=== PATIENT | female | born 1980 | race American Indian/Alaskan Native ===

== ENCOUNTER 2020-12-16 18:58 | Inpatient (IN) | payer MEDICARE ==
--- NOTE | 2020-12-16 19:44 | Event Note ---
ED Screening Note Date of service: 12/16/20 Time: 19:42 ED Screening Note: pt is a call back by pcp for low H/H ? , complains of SOB, N/V x 3 days , with syncope, referred by Dr. Junie Nava , pt denies CP, no fever or chills This initial assessment/diagnostic orders/clinical plan/treatment(s) is/are subject to change based on patients health status, clinical progression and re- assessment by fellow clinical providers in the ED. Further treatment and workup at subsequent clinical providers discretion. Patient/guardian urged not to elope from the ED as their condition may be serious if not clinically assessed and managed. Initial orders include: CMP, CBC , PT, PTT, CXR, EKG, UA, HCG IV
[2020-12-16 20:13] LABS: Basophils % (Auto) 0.7 % (0.0-1.8); Eosinophils % (Auto) 0.4 % (0.0-4.3); Lymphocytes # (Auto) 1.4 K/mm3 (1.2-5.4); Lymphocytes % (Auto) 21.3 % (13.4-35.0); Mean Corpuscular HGB Conc 30 % (30-34); Monocytes # (Auto) 0.9 K/mm3 (0.0-0.8); Monocytes % (Auto) 13.2 % (0.0-7.3); Platelet Count 680 K/mm3 (140-440); Red Blood Count 2.75 M/mm3 (3.65-5.03); Red Cell Distribution Width 17.8 % (13.2-15.2)
[2020-12-16] MEDS ORDERED: LACTATED RINGERS 1,000 ML IV ONE (20:20)
[2020-12-16] MEDS ORDERED: ONDANSETRON 4 MG ODT TAB PO PRN (20:20)
--- NOTE | 2020-12-16 20:21 | Emergency Department Report ---
ED General Adult HPI - General Chief complaint: Recheck/Abnormal Lab/Rx Stated complaint: PASSED OUT Time Seen by Provider: 12/16/20 20:07 Source: patient, family, RN notes reviewed Mode of arrival: Ambulatory Limitations: Other (Patient developmentally delayed) - History of Present Illness Initial comments: The patient was evaluated in the emergency department for symptoms described in the history of present illness. He/she was evaluated in the context of the global COVID-19 pandemic, which necessitated consideration that the patient might be at risk for infection with the virus that causes COVID-19. Institutional protocols and algorithms that pertain to the evaluation of patients at risk for COVID-19 are in a state of rapid change based on i nformation released by regulatory bodies including the CDC and federal and state organizations. These policies and algorithms were followed during the patient's care in the emergency department. Please note that these policies, procedures and recommendations changed on a rapid basis. During the history and physical examination, I am chaperoned by nurse Jony Bill Patient is a 40-year-old female. She is not known to myself previously. She has a history of autism and developmental delay. She is accompanied by her sister, who is her primary hogshead cooper, who provides all the history. Sister/hogshead cooper indicates the patient is not Patient was reportedly in her usual state of health a couple days ago, at the [facility], when she "passed out." As per her sister, the patient was walking, and appeared to become globally weak, and appeared to fall. Prior to this, the patient did not have any symptoms. The patient did not hit her head. The patient was evaluated by emergency medical services at the [facility], and the sister was told "that she is fine", and therefore, the patient herself did not have an evaluation by a physician, physician Human Resources Supervisor, or nurse practitioner. The patient followed up with her primary care doctor this week, had laboratory studies drawn, which showed a hemoglobin of 4.1. She was thus referred to the emergency room. Patient currently taking Risperdal, Zofran, Bentyl, metoprolol, and promethazine. However, the patient has not started any new or different medications. As per the patient's sister, no travel, surgery, oral contraceptive use, leg swelling which is new or different. No hematemesis of bright red blood per rectum. The patient also reportedly has heavy menstruation. Patient is not menstruating at this moment. The patient herself denies physical pain. As per the sister, there is no loss of taste or smell. Patient has a chronic history of vomiting while eating, patient sister reports that the patient rather rapidly, and therefore, has occasional nausea and vomiting while eating. This has been going on for months, is typically associated with eating, and patient is going to see an outpatient legal billing analyst, within the next few weeks, and its "[facility] gastroenterology." No further episodes of syncope/loss of consciousness. -: Sudden Consistency: now resolved Improves with: none Worsens with: none Associated Symptoms: denies other symptoms (As per sister/history of present i llness) - Related Data Home Medications Medication Instructions Recorded Confirmed Last Taken Pantoprazole Sodium 40 mg PO DAILY 12/16/20 12/16/20 Unknown risperiDONE [RisperDAL] 1 mg PO QHS 12/16/20 12/16/20 12/15/20 22:00 Allergies Allergy/AdvReac Type Severity Reaction Status Date / Time No Known Allergies Allergy Verified 12/16/20 19:45 ED Review of Systems ROS: Stated complaint: PASSED OUT Other details as noted in HPI Constitutional: denies: fever Eyes: denies: eye discharge ENT: denies: epistaxis, congestion Respiratory: denies: cough Cardiovascular: edema (Chronic lower extremity edema), syncope. denies: chest pain Gastrointestinal: nausea, vomiting. denies: hematemesis, melena, hematochezia Genitourinary: denies: frequency Neurological: denies: weakness Hematological/Lymphatic: other (Heavy menstruation). denies: easy bleeding ED Past Medical Hx - Past Medical History Previous Medical History?: Yes Hx Asthma: Yes Additional medical history: Autisic - Surgical History Past Surgical History?: No - Social History Smoking Status: Never Smoker Substance Use Type: None - Medications Home Medications: Home Medications Medication Instructions Recorded Confirmed Last Taken Type Pantoprazole Sodium 40 mg PO DAILY 12/16/20 12/16/20 Unknown History risperiDONE [RisperDAL] 1 mg PO QHS 12/16/20 12/16/20 12/15/20 22:00 History ED Physical Exam - General Limitations: Other (Developmental delay) General appearance: in no apparent distress, obese, other (During the entire physical examination, chaperoned by nurse jony bill) - Head Head exam: Present: atraumatic, normocephalic - Eye Eye exam: Present: normal appearance, EOMI, other (Conjunctiva are pale). Absent: nystagmus - ENT ENT exam: Present: normal exam, normal orophraynx, mucous membranes moist, normal external ear exam - Neck Neck exam: Present: normal inspection, full ROM. Absent: tenderness, meningismus - Respiratory Respiratory exam: Present: normal lung sounds bilaterally. Absent: respiratory distress, wheezes, rales, rhonchi, stridor, decreased breath sounds - Cardiovascular Cardiovascular Exam: Present: regular rate, normal rhythm, normal heart sounds. Absent: bradycardia, tachycardia, irregular rhythm, systolic murmur, diastolic murmur, rubs, gallop - GI/Abdominal GI/Abdominal exam: Present: soft. Absent: distended, tenderness, guarding, rebound, rigid, pulsatile mass - Rectal Rectal exam: Present: normal inspection, normal rectal tone, heme (-) stool, other (Chaperoned by nurse jony bill). Absent: heme (+) stool, black stool, bloody stool, fecal impaction, hemorrhoids, mass, tenderness - Extremities Exam Extremities exam: Present: normal inspection, full ROM, pedal edema (2+ edema in the bilateral lower extremities), other (2+ pulses noted in the bilateral upper and lower extremities. There is no palpable cord. negative Homans sign. Muscular compartments are soft. The pelvis is stable.). Absent: calf tenderness - Back Exam Back exam: Present: normal inspection, full ROM. Absent: tenderness, CVA tenderness (R), CVA tenderness (L), paraspinal tenderness, vertebral tenderness - Neurological Exam Neurological exam: Present: alert, normal gait, other (No facial droop. Tongue midline. Extraocular movements intact bilaterally. Facial sensation intact to light touch in V1, V2, V3 distribution bilaterally. 5 and a 5 strength in 4 e xtremities. Sensation intact to light touch in 4 extremities.) - Psychiatric Psychiatric exam: Present: flat affect - Skin Skin exam: Present: warm, dry, intact, normal color. Absent: rash ED Course Vital Signs 12/16/20 12/16/20 12/16/20 19:42 20:00 20:14 Temperature 99.5 F 98.8 F Pulse Rate 94 H 96 H Respiratory 20 14 17 Rate Blood Pressure 133/59 Blood Pressure 160/72 [Left] O2 Sat by Pulse 100 100 Oximetry 12/16/20 12/16/20 12/16/20 20:15 20:30 20:45 Temperature Pulse Rate 91 H 95 H 94 H Respiratory 13 16 17 Rate Blood Pressure 160/72 149/70 Blood Pressure [Left] O2 Sat by Pulse 100 100 100 Oximetry 12/16/20 21:00 Temperature Pulse Rate 102 H Respiratory 14 Rate Blood Pressure 149/70 Blood Pressure [Left] O2 Sat by Pulse 100 Oximetry ED Medical Decision Making - Lab Data Result diagrams: 12/16/20 19:48 12/16/20 19:48 Vital Signs 12/16/20 12/16/20 12/16/20 19:42 20:00 20:14 Temperature 99.5 F 98.8 F Pulse Rate 94 H 96 H Respiratory 20 14 17 Rate Blood Pressure 133/59 Blood Pressure 160/72 [Left] O2 Sat by Pulse 100 100 Oximetry 12/16/20 12/16/20 12/16/20 20:15 20:30 20:45 Temperature Pulse Rate 91 H 95 H 94 H Respiratory 13 16 17 Rate Blood Pressure 160/72 149/70 Blood Pressure [Left] O2 Sat by Pulse 100 100 100 Oximetry 12/16/20 21:00 Temperature Pulse Rate 102 H Respiratory 14 Rate Blood Pressure 149/70 Blood Pressure [Left] O2 Sat by Pulse 100 Oximetry Lab Results 12/16/20 12/16/20 12/16/20 Range/Units 19:48 19:48 19:48 WBC 6.6 (4.5-11.0) K/mm3 RBC 2.75 L (3.65-5.03) M/mm3 Hgb 5.3 L* (10.1-14.3) gm/dl Hct 17.6 L* (30.3-42.9) % MCV 64 L (79-97) fl MCH 19 L (28-32) pg MCHC 30 (30-34) % RDW 17.8 H (13.2-15.2) % Plt Count 680 H (140-440) K/mm3 Lymph % (Auto) 21.3 (13.4-35.0) % [place] % (Auto) 13.2 H (0.0-7.3) % Eos % (Auto) 0.4 (0.0-4.3) % Baso % (Auto) 0.7 (0.0-1.8) % Lymph # (Auto) 1.4 (1.2-5.4) K/mm3 [place] # (Auto) 0.9 H (0.0-0.8) K/mm3 Eos # (Auto) 0.0 (0.0-0.4) K/mm3 Baso # (Auto) 0.0 (0.0-0.1) K/mm3 Seg Neutrophils % 64.4 (40.0-70.0) % Seg Neutrophils # 4.2 (1.8-7.7) K/mm3 PT 12.3 (12.2-14.9) Sec. INR 0.92 (0.87-1.13) APTT 30.2 (24.2-36.6) Sec. Sodium 136 L (137-145) mmol/L Potassium 4.3 (3.6-5.0) mmol/L Chloride 101.4 (98-107) mmol/L Carbon Dioxide 26 (22-30) mmol/L Anion Gap 13 mmol/L BUN 7 (7-17) mg/dL Creatinine 0.7 (0.6-1.2) mg/dL Estimated GFR > 60 ml/min BUN/Creatinine Ratio 10 % Glucose 110 H (65-100) mg/dL Calcium 8.5 (8.4-10.2) mg/dL Magnesium (1.7-2.3) mg/dL Total Bilirubin 0.30 (0.1-1.2) mg/dL AST 11 (5-40) units/L ALT 5 L (7-56) units/L Alkaline Phosphatase 51 (35-129) units/L Total Creatine Kinase (30-135) units/L Total Protein 6.8 (6.3-8.2) g/dL Albumin 4.0 (3.9-5) g/dL Albumin/Globulin Ratio 1.4 % TSH (0.270-4.200) mlU/mL Blood Type Antibody Screen Crossmatch 12/16/20 12/16/20 12/16/20 Range/Units 20:12 20:12 20:12 WBC (4.5-11.0) K/mm3 RBC (3.65-5.03) M/mm3 Hgb (10.1-14.3) gm/dl Hct (30.3-42.9) % MCV (79-97) fl MCH (28-32) pg MCHC (30-34) % RDW (13.2-15.2) % Plt Count (140-440) K/mm3 Lymph % (Auto) (13.4-35.0) % [place] % (Auto) (0.0-7.3) % Eos % (Auto) (0.0-4.3) % Baso % (Auto) (0.0-1.8) % Lymph # (Auto) (1.2-5.4) K/mm3 [place] # (Auto) (0.0-0.8) K/mm3 Eos # (Auto) (0.0-0.4) K/mm3 Baso # (Auto) (0.0-0.1) K/mm3 Seg Neutrophils % (40.0-70.0) % Seg Neutrophils # (1.8-7.7) K/mm3 PT (12.2-14.9) Sec. INR (0.87-1.13) APTT (24.2-36.6) Sec. Sodium (137-145) mmol/L Potassium (3.6-5.0) mmol/L Chloride (98-107) mmol/L Carbon Dioxide (22-30) mmol/L Anion Gap mmol/L BUN (7-17) mg/dL Creatinine (0.6-1.2) mg/dL Estimated GFR ml/min BUN/Creatinine Ratio % Glucose (65-100) mg/dL Calcium (8.4-10.2) mg/dL Magnesium 2.00 (1.7-2.3) mg/dL Total Bilirubin (0.1-1.2) mg/dL AST (5-40) units/L ALT (7-56) units/L Alkaline Phosphatase (35-129) units/L Total Creatine Kinase 75 (30-135) units/L Total Protein (6.3-8.2) g/dL Albumin (3.9-5) g/dL Albumin/Globulin Ratio % TSH 1.960 (0.270-4.200) mlU/mL Blood Type O POSITIVE Antibody Screen Negative Crossmatch See Detail - EKG Data -: EKG Interpreted by Nm EKG shows normal: sinus rhythm Rate: normal - EKG Data When compared to previous EKG there are: previous EKG unavailable 12/16/20 21:24 Sinus rhythm, 97 bpm. Normal axis, motion artifact, QTC is prolonged, motion artifact V5. Abnormal EKG. Not a STEMI. There is no prior for comparison. - Radiology Data Radiology results: pending - Medical Decision Making Differential diagnosis, including but not limited to: Orthostasis, vagal event, structural cardiac disease, thyroid derangement, electrolyte derangement, sympt omatic anemia Assessment and plan: 40-year-old female, guaiac negative on rectal examination, very pale, with pale conjunctiva, anemic, with thrombocytosis, , microcytosis, with episode of syncope, 3 days ago. Patient is not currently tachycardic, tachypneic or hypoxic, as per her sister, there are no DVT or pulmonary embolism risk factors, and the patient is low risk by Wells criteria. There may be a component of symptomatic anemia versus myelodysplastic syndrome. Would defer to inpatient team to further work-up microcytic anemia and thrombocytosis. Physical exam otherwise unremarkable except as noted, mild lower extremity edema, walking with a steady gait. Patient found to be markedly anemic, sister has consented for packed red blood cell transfusion. We have recommended admission to the medical service for supportive care, packed red blood cell transfusion. Sister is amenable to this plan of care. Hospital physician, Dr. Parkinson to admit Suspect there may be a component of chronic aerophagia. This is most likely behavioral. Does not represent emergent condition, this can be followed up by an outpatient primary care doctor, or legal billing analyst. Critical Care Time: Yes Critical care time in (mins) excluding proc time.: 35 Critical care attestation.: If time is entered above; I have spent that time in minutes in the direct care of this critically ill patient, excluding procedure time. ED Disposition Clinical Impression: Syncope, Anemia, Autism, History of vomiting Disposition: OP ADMIT IP TO THIS HOSP Is pt being admited?: Yes Does the pt Need Aspirin: No Condition: Good
[2020-12-16 20:26] LABS: INR 0.92 (0.87-1.13)
[2020-12-16 20:27] LABS: Partial Thromboplastin Time 30.2 Sec. (24.2-36.6)
[2020-12-16 20:37] LABS: Alanine Aminotransferase 5 units/L (7-56); Blood Urea Nitrogen 7 mg/dL (7-17); Calcium 8.5 mg/dL (8.4-10.2); Hemolysis Index 0
[2020-12-16 20:45] LABS: BUN/Creatinine Ratio 10
[2020-12-16 20:56] LABS: Mean Corpuscular Volume 64 fl (79-97)
[2020-12-16 20:59] LABS: Hematocrit 17.6 % (30.3-42.9); Hemoglobin 5.3 gm/dl (10.1-14.3)
[2020-12-16] MEDS ORDERED: SODIUM CHLORIDE 0.9% 500 ML 500 ML IV ONE (21:15)
[2020-12-16] MEDS ORDERED: ONDANSETRON 4 MG/2 ML INJ IV PRN (21:39)
[2020-12-16 22:23] LABS: Bilirubin,Urine NEG (Negative); Blood,Urine NEG (Negative); Color,Urine Straw (Yellow); Mucus,Urine FEW /HPF; Protein,Urine <15 mg/dL mg/dL (Negative); Urobilinogen,Urine < 2.0 mg/dL (<2.0)
[2020-12-16 22:25] LABS: HCG Qualitative,Urine Negative (Negative); RBC,Urine < 1.0 /HPF (0.0-6.0); WBC,Urine < 1.0 /HPF (0.0-6.0)
[2020-12-16] MEDS: risperiDONE 1 MG TAB PO SCH (23:02)
--- NOTE | 2020-12-16 23:05 | History and Physical Report ---
History of Present Illness Date of examination: 12/16/20 Date of admission: 12/16/20 21:26 Chief complaint: abnormal labs. syncope History of present illness: 40-year-old autistic female with history of chronic nausea/vomiting when eating, menorrhagia, and iron deficiency anemia who presents to [facility] ED with complaints of anemia. Of note patient sister, who is also her primary technical assoc is present and has assisted with providing history. Patient sister reports they were out grocery shopping on Tuesday (12/12) and patient had a syncopal episode. Patient was evaluated by emergency medical services (who were on scene), with no acute findings. On Tuesday patient went to her PCP for follow-up, and routine labs were drawn which showed hemoglobin of 4.1. Patient was referred to report to ED for further evaluation and treatment. At the time of my examination patient is sitting up in stretcher, alert and oriented x2-3, and has no complaints at this time. Denies headache, dizziness, alterations in vision, alterations in gait, abdominal pain, fever, hematuria, melena, hematemesis, hemoptysis, change in medication, or recent sick contacts Past History Past Medical History: other (Autism, chronic nausea/vomiting while eating, menorrhagia, anemia) Past Surgical History: Other (Denies surgical history) Social history: single, full code, other (Lives with sister who is also her primary technical assoc). denies: alcohol abuse, prescription drug abuse, IV drug use Family history: other (Mother: Anemia, fibroids, COPD, chronic respiratory failure status post trach) Medications and Allergies Allergies Allergy/AdvReac Type Severity Reaction Status Date / Time No Known Allergies Allergy Verified 12/16/20 19:45 Home Medications Medication Instructions Recorded Confirmed Last Taken Type Pantoprazole Sodium 40 mg PO DAILY 12/16/20 12/16/20 Unknown History risperiDONE [RisperDAL] 1 mg PO QHS 12/16/20 12/16/20 12/15/20 22:00 History Active Meds: Active Medications Acetaminophen (Acetaminophen 325 Mg Tab) 650 mg PO Q4H PRN PRN Reason: Pain MILD(1-3)/Fever >100.5/JHONSON Ferrous Sulfate (Ferrous Sulfate 325 Mg Tab) 325 mg PO QDAY CARMEN Ondansetron HCl (Ondansetron 4 Mg Odt Tab) 4 mg PO Q6HR PRN PRN Reason: Nausea Ondansetron HCl (Ondansetron 4 Mg/2 Ml Inj) 4 mg IV Q6H PRN PRN Reason: Nausea And Vomiting Pantoprazole Sodium (Pantoprazole 40 Mg Tab) 40 mg PO DAILY CARMEN Sodium Chloride (Sodium Chloride 0.9% 10 Ml Flush Syringe) 10 ml IV BID CARMEN Sodium Chloride (Sodium Chloride 0.9% 10 Ml Flush Syringe) 10 ml IV PRN PRN PRN Reason: LINE FLUSH Review of Systems All systems: negative (As noted in HPI) Exam - Physical Exam Narrative exam: Physical exam General appearance: Present: No acute distress, alert and oriented 2-3, adult female - EENT Eyes: Present: PERRL, EOM intact ENT: hearing intact, normal dentition - Neck Neck: Present: supple, normal ROM - Respiratory Respiratory effort: Non-labored Respiratory: Clear throughout - Cardiovascular Heart rate: 85 (bpm) Rhythm: Sinus Heart Sounds: Present: S1 & S2. Absent: rub, click - Extremities Extremities: no ischemia, pulses intact, bilateral lower extremity edema - Peripheral Assessment Peripheral Pulses: within normal limits - Abdominal General gastrointestinal: soft, non-tender, normal bowel sounds - Integumentary Integumentary: Present: warm, dry - Musculoskeletal Musculoskeletal: Able to move all extremities -Neurological Neurological: CN II-XII intact - Psychiatric Psychiatric: cooperative - Constitutional Vitals: Temp Pulse Resp BP Pulse Ox 98.8 F 95 H 16 147/56 100 12/16/20 20:00 12/16/20 22:00 12/16/20 22:00 12/16/20 22:00 12/16/20 22:00 Results - Labs CBC & Chem 7: 12/16/20 19:48 12/16/20 19:48 Labs: Laboratory Last Values WBC 6.6 K/mm3 (4.5-11.0) 12/16/20 19:48 RBC 2.75 M/mm3 (3.65-5.03) L 12/16/20 19:48 Hgb 5.3 gm/dl (10.1-14.3) L* 12/16/20 19:48 Hct 17.6 % (30.3-42.9) L* 12/16/20 19:48 MCV 64 fl (79-97) L 12/16/20 19:48 MCH 19 pg (28-32) L 12/16/20 19:48 MCHC 30 % (30-34) 12/16/20 19:48 RDW 17.8 % (13.2-15.2) H 12/16/20 19:48 Plt Count 680 K/mm3 (140-440) H 12/16/20 19:48 Lymph % (Auto) 21.3 % (13.4-35.0) 12/16/20 19:48 [place] % (Auto) 13.2 % (0.0-7.3) H 12/16/20 19:48 Eos % (Auto) 0.4 % (0.0-4.3) 12/16/20 19:48 Baso % (Auto) 0.7 % (0.0-1.8) 12/16/20 19:48 Lymph # (Auto) 1.4 K/mm3 (1.2-5.4) 12/16/20 19:48 [place] # (Auto) 0.9 K/mm3 (0.0-0.8) H 12/16/20 19:48 Eos # (Auto) 0.0 K/mm3 (0.0-0.4) 12/16/20 19:48 Baso # (Auto) 0.0 K/mm3 (0.0-0.1) 12/16/20 19:48 Seg Neutrophils % 64.4 % (40.0-70.0) 12/16/20 19:48 Seg Neutrophils # 4.2 K/mm3 (1.8-7.7) 12/16/20 19:48 PT 12.3 Sec. (12.2-14.9) 12/16/20 19:48 INR 0.92 (0.87-1.13) 12/16/20 19:48 APTT 30.2 Sec. (24.2-36.6) 12/16/20 19:48 Sodium 136 mmol/L (137-145) L 12/16/20 19:48 Potassium 4.3 mmol/L (3.6-5.0) 12/16/20 19:48 Chloride 101.4 mmol/L (98-107) 12/16/20 19:48 Carbon Dioxide 26 mmol/L (22-30) 12/16/20 19:48 Anion Gap 13 mmol/L 12/16/20 19:48 BUN 7 mg/dL (7-17) 12/16/20 19:48 Creatinine 0.7 mg/dL (0.6-1.2) 12/16/20 19:48 Estimated GFR > 60 ml/min 12/16/20 19:48 BUN/Creatinine Ratio 10 % 12/16/20 19:48 Glucose 110 mg/dL (65-100) H 12/16/20 19:48 Calcium 8.5 mg/dL (8.4-10.2) 12/16/20 19:48 Magnesium 2.00 mg/dL (1.7-2.3) 12/16/20 20:12 Total Bilirubin 0.30 mg/dL (0.1-1.2) 12/16/20 19:48 AST 11 units/L (5-40) 12/16/20 19:48 ALT 5 units/L (7-56) L 12/16/20 19:48 Alkaline Phosphatase 51 units/L (35-129) 12/16/20 19:48 Total Creatine Kinase 75 units/L (30-135) 12/16/20 20:12 Total Protein 6.8 g/dL (6.3-8.2) 12/16/20 19:48 Albumin 4.0 g/dL (3.9-5) 12/16/20 19:48 Albumin/Globulin Ratio 1.4 % 12/16/20 19:48 TSH 1.960 mlU/mL (0.270-4.200) 12/16/20 20:12 Urine Color Straw (Yellow) 12/16/20 21:27 Urine Turbidity Clear (Clear) 12/16/20 21:27 Urine pH 7.0 (5.0-7.0) 12/16/20 21:27 Ur Specific [place] 1.008 (1.003-1.030) 12/16/20 21:27 Urine Protein <15 mg/dl mg/dL (Negative) 12/16/20 21:27 Urine Glucose (UA) Neg mg/dL (Negative) 12/16/20 21:27 Urine Ketones Neg mg/dL (Negative) 12/16/20 21:27 Urine Blood Neg (Negative) 12/16/20 21:27 Urine Nitrite Neg (Negative) 12/16/20 21:27 Urine Bilirubin Neg (Negative) 12/16/20 21: Urine Urobilinogen < 2.0 mg/dL (<2.0) 12/16/20 21: Ur Leukocyte Esterase Neg (Negative) 12/16/20 21: Urine WBC (Auto) < 1.0 /HPF (0.0-6.0) 12/16/20 21: Urine RBC (Auto) < 1.0 /HPF (0.0-6.0) 12/16/20: U Epithel Cells (Auto) 1.0 /HPF (0-13.0) 12/16/20: Urine Mucus Few /HPF 12/16/20 21: Urine HCG, Qual Negative (Negative) 12/16/20 21: Blood Type O POSITIVE 12/16/20 20:12 Antibody Screen Negative 12/16/20 20:12 Crossmatch See Detail 12/16/20 20:12 Assessment and Plan Assessment and plan: Anemia -Microcytic -Symptomatic -History of iron deficiency anemia, previously on oral iron replacement -History of menorrhagia, last menstrual cycle ending of November -Hemoglobin on admission 5.3 -No S/S of active bleeding -PRBC ordered in the ED, transfusion pending -Start oral iron supplement -Continue to monitor hemoglobin -Transfuse as needed -Hematology consult pending Thrombocytosis -?? Reactive process -Serum ferritin pending -Hematology consult pending History of chronic nausea/vomiting -When eating -IV Zofran as needed -On Protonix, continue -Has schedule appointment with [facility] Syncope -Witnessed syncopal episode x1 (12/12) -Denies head injury/trauma -Neurochecks -Echo and Doppler pending -Initiate fall precautions Autism -Continue risperidone DVT PPX -On anticoagulation for now Advance Directives: No VTE prophylaxis?: Mechanical Reason for no VTE Prophylaxis: Medical contraindication Plan of care discussed with patient/family: Yes
--- NOTE | 2020-12-16 23:14 | XRay Report ---
CHEST 1 VIEW 12/16/2020 10:03 PM INDICATION / CLINICAL INFORMATION: s/v weak syncope. COMPARISON: None available. FINDINGS: SUPPORT DEVICES: None. HEART / MEDIASTINUM: Heart is upper normal size for AP portable technique. LUNGS / PLEURA: Mild perihilar interstitial opacities could represent early edema. No acute airspace disease. No pneumothorax. ADDITIONAL FINDINGS: No significant additional findings. IMPRESSION: 1. Borderline cardiomegaly with borderline interstitial pulmonary edema. Signer Name: Nila Ray MD Signed: 12/16/2020 11:10 PM Workstation Name: [id number]
[2020-12-17] MEDS: ACETAMINOPHEN 325 MG TAB PO PRN ×2 (01:25→20:31)
[2020-12-17] MEDS ORDERED: SODIUM CHLORIDE 0.9% 500 ML 500 ML IV ONE (01:30)
--- NOTE | 2020-12-17 01:39 | Hem/Onc Consultation ---
History of Present Illness - History of Present Illness heme data review 40yo disabled woman with mental illness, chronic anemia, eval for syncope went to [facility]-->found to have severe anemia Hgb 4.1 now receiving RBC transfusions no overt bleeding now DATA REVIEWED BELOW IMPRESSION Severe anemia mostly due to chronic bleeding and iron defic high plt count could be due to iron defic iron tetsing won't be interpretable after RBC transfusion PLAN/REC: RBC transfusion planned IV iron infusions eventually [facility] [employer] eval Vital Signs Temp Pulse Resp BP Pulse Ox 95.6 F L 98 H 18 135/55 100 12/16/20 23:36 12/16/20 23:36 12/16/20 23:36 12/16/20 23:36 12/16/20 23:36 Temperature -Last 24 Hours Temperature 95.6 F Temperature 98.8 F Temperature 99.5 F Home Medications Medication Instructions Recorded Confirmed Last Taken Pantoprazole Sodium 40 mg PO DAILY 12/16/20 12/16/20 Unknown risperiDONE [RisperDAL] 1 mg PO QHS 12/16/20 12/16/20 12/15/20 22:00 Laboratory Last Values WBC 6.6 K/mm3 (4.5-11.0) 12/16/20 19:48 Hgb 5.3 gm/dl (10.1-14.3) L* 12/16/20 19:48 Hct 17.6 % (30.3-42.9) L* 12/16/20 19:48 MCV 64 fl (79-97) L 12/16/20 19:48 Plt Count 680 K/mm3 (140-440) H 12/16/20 19:48 Creatinine 0.7 mg/dL (0.6-1.2) 12/16/20 19:48 Crossmatch See Detail 12/16/20 20:12 Past History Past Medical History: other (Autism, chronic nausea/vomiting while eating, menorrhagia, anemia) Past Surgical History: Other (Denies surgical history) Social history: single, full code, other (Lives with sister who is also her primary pantograph watcher). denies: alcohol abuse, prescription drug abuse, IV drug use Family history: other (Mother: Anemia, fibroids, COPD, chronic respiratory failure status post trach) Medications and Allergies Allergies Allergy/AdvReac Type Severity Reaction Status Date / Time No Known Allergies Allergy Verified 12/16/20 19:45 Home Medications Medication Instructions Recorded Confirmed Last Taken Type Pantoprazole Sodium 40 mg PO DAILY 12/16/20 12/16/20 Unknown History risperiDONE [RisperDAL] 1 mg PO QHS 12/16/20 12/16/20 12/15/20 22:00 History Active Meds: Active Medications Acetaminophen (Acetaminophen 325 Mg Tab) 650 mg PO Q4H PRN PRN Reason: Pain MILD(1-3)/Fever >100.5/JOHNSON Last Admin: 12/17/20 01:25 Dose: 650 mg Documented by: Ferrous Sulfate (Ferrous Sulfate 325 Mg Tab) 325 mg PO QDAY [facility] Ondansetron HCl (Ondansetron 4 Mg Odt Tab) 4 mg PO Q6HR PRN PRN Reason: Nausea Ondansetron HCl (Ondansetron 4 Mg/2 Ml Inj) 4 mg IV Q6H PRN PRN Reason: Nausea And Vomiting Pantoprazole Sodium (Pantoprazole 40 Mg Tab) 40 mg PO DAILY [facility] Risperidone (Risperidone 1 Mg Tab) 1 mg PO QHS [facility] Last Admin: 12/16/20 23:02 Dose: 1 mg Documented by: Sodium Chloride (Sodium Chloride 0.9% 10 Ml Flush Syringe) 10 ml IV BID [facility] Last Admin: 12/16/20 23:03 Dose: 10 ml Documented by: Sodium Chloride (Sodium Chloride 0.9% 10 Ml Flush Syringe) 10 ml IV PRN PRN PRN Reason: LINE FLUSH Exam - Constitutional Vitals: Last Vital Signs Temp 95.6 F L 12/16/20 23:36 Pulse 98 H 12/16/20 23:36 Resp 18 12/16/20 23:36 BP 135/55 12/16/20 23:36 Pulse Ox 100 12/16/20 23:36 Results - Labs lab Results: Laboratory Results - last 24 hr 12/16/20 12/16/20 12/16/20 19:48 19:48 19:48 WBC 6.6 RBC 2.75 L Hgb 5.3 L* Hct 17.6 L* MCV 64 L MCH 19 L MCHC 30 RDW 17.8 H Plt Count 680 H Lymph % (Auto) 21.3 [place] % (Auto) 13.2 H Eos % (Auto) 0.4 Baso % (Auto) 0.7 Lymph # (Auto) 1.4 [place] # (Auto) 0.9 H Eos # (Auto) 0.0 Baso # (Auto) 0.0 Seg Neutrophils % 64.4 Seg Neutrophils # 4.2 PT 12.3 INR 0.92 APTT 30.2 Sodium 136 L Potassium 4.3 Chloride 101.4 Carbon Dioxide 26 Anion Gap 13 BUN 7 Creatinine 0.7 Estimated GFR > 60 BUN/Creatinine Ratio 10 Glucose 110 H Calcium 8.5 Magnesium Total Bilirubin 0.30 AST 11 ALT 5 L Alkaline Phosphatase 51 Total Creatine Kinase Total Protein 6.8 Albumin 4.0 Albumin/Globulin Ratio 1.4 TSH Urine Color Urine Turbidity Urine pH Ur Specific [place] Urine Protein Urine Glucose (UA) Urine Ketones Urine Blood Urine Nitrite Urine Bilirubin Urine Urobilinogen Ur Leukocyte Esterase Urine WBC (Auto) Urine RBC (Auto) U Epithel Cells (Auto) Urine Mucus Urine HCG, Qual Blood Type Antibody Screen Crossmatch 12/16/20 12/16/20 12/16/20 20:12 20:12 20:12 WBC RBC Hgb Hct MCV MCH MCHC RDW Plt Count Lymph % (Auto) [place] % (Auto) Eos % (Auto) Baso % (Auto) Lymph # (Auto) [place] # (Auto) Eos # (Auto) Baso # (Auto) Seg Neutrophils % Seg Neutrophils # PT INR APTT Sodium Potassium Chloride Carbon Dioxide Anion Gap BUN Creatinine Estimated GFR BUN/Creatinine Ratio Glucose Calcium Magnesium 2.00 Total Bilirubin AST ALT Alkaline Phosphatase Total Creatine Kinase 75 Total Protein Albumin Albumin/Globulin Ratio TSH 1.960 Urine Color Urine Turbidity Urine pH Ur Specific [place] Urine Protein Urine Glucose (UA) Urine Ketones Urine Blood Urine Nitrite Urine Bilirubin Urine Urobilinogen Ur Leukocyte Esterase Urine WBC (Auto) Urine RBC (Auto) U Epithel Cells (Auto) Urine Mucus Urine HCG, Qual Blood Type O POSITIVE Antibody Screen Negative Crossmatch See Detail 12/16/20 21:27 WBC RBC Hgb Hct MCV MCH MCHC RDW Plt Count Lymph % (Auto) [place] % (Auto) Eos % (Auto) Baso % (Auto) Lymph # (Auto) [place] # (Auto) Eos # (Auto) Baso # (Auto) Seg Neutrophils % Seg Neutrophils # PT INR APTT Sodium Potassium Chloride Carbon Dioxide Anion Gap BUN Creatinine Estimated GFR BUN/Creatinine Ratio Glucose Calcium Magnesium Total Bilirubin AST ALT Alkaline Phosphatase Total Creatine Kinase Total Protein Albumin Albumin/Globulin Ratio TSH Urine Color Straw Urine Turbidity Clear Urine pH 7.0 Ur Specific [place] 1.008 Urine Protein <15 mg/dl Urine Glucose (UA) Neg Urine Ketones Neg Urine Blood Neg Urine Nitrite Neg Urine Bilirubin Neg Urine Urobilinogen < 2.0 Ur Leukocyte Esterase Neg Urine WBC (Auto) < 1.0 Urine RBC (Auto) < 1.0 U Epithel Cells (Auto) 1.0 Urine Mucus Few Urine HCG, Qual Negative Blood Type Antibody Screen Crossmatch
[2020-12-17 07:08] LABS: Basophils # (Auto) 0.1 K/mm3 (0.0-0.1); Eosinophils % (Auto) 0.7 % (0.0-4.3); Hemoglobin 6.2 gm/dl (10.1-14.3); Lymphocytes # (Auto) 1.7 K/mm3 (1.2-5.4); Lymphocytes % (Auto) 33.8 % (13.4-35.0); Monocytes # (Auto) 0.7 K/mm3 (0.0-0.8); Monocytes % (Auto) 13.6 % (0.0-7.3)
[2020-12-17 07:37] LABS: Albumin 3.2 g/dL (3.9-5); Blood Urea Nitrogen 5 mg/dL (7-17); Calcium 8.1 mg/dL (8.4-10.2); Hemolysis Index 0
[2020-12-17 07:38] LABS: Alanine Aminotransferase < 5 units/L (7-56); BUN/Creatinine Ratio 7
[2020-12-17 08:04] LABS: Hematocrit 20.3 % (30.3-42.9); Mean Corpuscular HGB Conc 31 % (30-34); Mean Corpuscular Volume 70 fl (79-97); Platelet Count 515 K/mm3 (140-440); Red Blood Count 2.89 M/mm3 (3.65-5.03)
[2020-12-17 08:05] LABS: Red Cell Distribution Width 22.7 % (13.2-15.2)
[2020-12-17] MEDS: FERROUS SULFATE 325 MG TAB PO SCH (09:58)
[2020-12-17] MEDS: PANTOPRAZOLE 40 MG TAB PO SCH (09:58)
--- NOTE | 2020-12-17 11:30 | Hem/Onc Consultation ---
History of Present Illness - History of Present Illness 40yo disabled woman with mental illness, chronic anemia, eval for syncope went to [facility]-->found to have severe anemia Hgb 4.1 ice craving says she once took hormone/OCP to contgrol bleeding, but not recently no overt bleeding now s/p RBC transfusion yesterday EXAM nad not bruised talks in a mumble, but answers questions appropriately DATA REVIEWED BELOW NL coags low ferriitin noted IMPRESSION Severe anemia mostly due to chronic bleeding and iron defic s/p RBC transfusion yesterday (this gave her iron) recent high plt count likely be due to iron defic PLAN/REC: IV iron infusions while hospitalized eventually [employer] E[employer] DESIGNER eval -->she may need to get back onto hormone med request pelvic u/s OK to plan discharge from heme perspective--pio try for televisit f/u Laboratory Last Values WBC 5.0 K/mm3 (4.5-11.0) 12/17/20 06:35 Hgb 6.2 gm/dl (10.1-14.3) L 12/17/20 06:35 Hct 20.3 % (30.3-42.9) L 12/17/20 06:35 MCV 70 fl (79-97) L 12/17/20 06:35 Plt Count 515 K/mm3 (140-440) H 12/17/20 06:35 Ferritin 3.4 ng/mL (10.0-200.0) L 12/17/20 06:35 Antibody Screen Negative 12/16/20 20:12 Crossmatch See Detail 12/16/20 20:12 Past History Past Medical History: other (Autism, chronic nausea/vomiting while eating, menorrhagia, anemia) Past Surgical History: Other (Denies surgical history) Social history: single, full code, other (Lives with sister who is also her primary laser technician). denies: alcohol abuse, prescription drug abuse, IV drug use Family history: other (Mother: Anemia, fibroids, COPD, chronic respiratory failure status post trach) Medications and Allergies Allergies Allergy/AdvReac Type Severity Reaction Status Date / Time No Known Allergies Allergy Verified 12/16/20 19:45 Home Medications Medication Instructions Recorded Confirmed Last Taken Type Pantoprazole Sodium 40 mg PO DAILY 12/16/20 12/16/20 Unknown History risperiDONE [RisperDAL] 1 mg PO QHS 12/16/20 12/16/20 12/15/20 22:00 History Active Meds: Active Medications Acetaminophen (Acetaminophen 325 Mg Tab) 650 mg PO Q4H PRN PRN Reason: Pain MILD(1-3)/Fever >100.5/JOHNSON Last Admin: 12/17/20 01:25 Dose: 650 mg Documented by: Ferrous Sulfate (Ferrous Sulfate 325 Mg Tab) 325 mg PO QDAY [facility] Last Admin: 12/17/20 09:58 Dose: 325 mg Documented by: Ferric Sodium Gluconate Complex 125 mg/ Sodium Chloride 110 mls @ 100 mls/hr IV ONCE ONE Stop: 12/17/20 12:31 Ondansetron HCl (Ondansetron 4 Mg Odt Tab) 4 mg PO Q6HR PRN PRN Reason: Nausea Ondansetron HCl (Ondansetron 4 Mg/2 Ml Inj) 4 mg IV Q6H PRN PRN Reason: Nausea And Vomiting Pantoprazole Sodium (Pantoprazole 40 Mg Tab) 40 mg PO DAILY [facility] Last Admin: 12/17/20 09:58 Dose: 40 mg Documented by: Risperidone (Risperidone 1 Mg Tab) 1 mg PO QHS [facility] Last Admin: 12/16/20 23:02 Dose: 1 mg Documented by: Sodium Chloride (Sodium Chloride 0.9% 10 Ml Flush Syringe) 10 ml IV BID [facility] Last Admin: 12/17/20 09:58 Dose: 10 ml Documented by: Sodium Chloride (Sodium Chloride 0.9% 10 Ml Flush Syringe) 10 ml IV PRN PRN PRN Reason: LINE FLUSH Exam - Constitutional Vitals: Last Vital Signs Temp 97.9 F 12/17/20 08:54 Pulse 76 12/17/20 10:03 Resp 17 12/17/20 10:03 BP 123/54 12/17/20 08:54 Pulse Ox 98 12/17/20 10:03 Results - Labs lab Results: Laboratory Results - last 24 hr 12/16/20 12/16/20 12/16/20 19:48 19:48 19:48 WBC 6.6 RBC 2.75 L Hgb 5.3 L* Hct 17.6 L* MCV 64 L MCH 19 L MCHC 30 RDW 17.8 H Plt Count 680 H Lymph % (Auto) 21.3 [place] % (Auto) 13.2 H Eos % (Auto) 0.4 Baso % (Auto) 0.7 Lymph # (Auto) 1.4 [place] # (Auto) 0.9 H Eos # (Auto) 0.0 Baso # (Auto) 0.0 Seg Neutrophils % 64.4 Seg Neutrophils # 4.2 PT 12.3 INR 0.92 APTT 30.2 Sodium 136 L Potassium 4.3 Chloride 101.4 Carbon Dioxide 26 Anion Gap 13 BUN 7 Creatinine 0.7 Estimated GFR > 60 BUN/Creatinine Ratio 10 Glucose 110 H Calcium 8.5 Magnesium Ferritin Total Bilirubin 0.30 AST 11 ALT 5 L Alkaline Phosphatase 51 Total Creatine Kinase Total Protein 6.8 Albumin 4.0 Albumin/Globulin Ratio 1.4 TSH Urine Color Urine Turbidity Urine pH Ur Specific [place] Urine Protein Urine Glucose (UA) Urine Ketones Urine Blood Urine Nitrite Urine Bilirubin Urine Urobilinogen Ur Leukocyte Esterase Urine WBC (Auto) Urine RBC (Auto) U Epithel Cells (Auto) Urine Mucus Urine HCG, Qual Blood Type Antibody Screen Crossmatch 12/16/20 12/16/20 12/16/20 20:12 20:12 20:12 WBC RBC Hgb Hct MCV MCH MCHC RDW Plt Count Lymph % (Auto) [place] % (Auto) Eos % (Auto) Baso % (Auto) Lymph # (Auto) [place] # (Auto) Eos # (Auto) Baso # (Auto) Seg Neutrophils % Seg Neutrophils # PT INR APTT Sodium Potassium Chloride Carbon Dioxide Anion Gap BUN Creatinine Estimated GFR BUN/Creatinine Ratio Glucose Calcium Magnesium 2.00 Ferritin Total Bilirubin AST ALT Alkaline Phosphatase Total Creatine Kinase 75 Total Protein Albumin Albumin/Globulin Ratio TSH 1.960 Urine Color Urine Turbidity Urine pH Ur Specific [place] Urine Protein Urine Glucose (UA) Urine Ketones Urine Blood Urine Nitrite Urine Bilirubin Urine Urobilinogen Ur Leukocyte Esterase Urine WBC (Auto) Urine RBC (Auto) U Epithel Cells (Auto) Urine Mucus Urine HCG, Qual Blood Type O POSITIVE Antibody Screen Negative Crossmatch See Detail 12/16/20 12/17/20 12/17/20 21:27 06:35 06:35 WBC 5.0 RBC 2.89 L Hgb 6.2 L Hct 20.3 L MCV 70 L MCH 22 L MCHC 31 RDW 22.7 H Plt Count 515 H Lymph % (Auto) 33.8 [place] % (Auto) 13.6 H Eos % (Auto) 0.7 Baso % (Auto) 1.0 Lymph # (Auto) 1.7 [place] # (Auto) 0.7 Eos # (Auto) 0.0 Baso # (Auto) 0.1 Seg Neutrophils % 50.9 Seg Neutrophils # 2.6 PT INR APTT Sodium 138 Potassium 3.7 Chloride 105.7 Carbon Dioxide 27 Anion Gap 9 BUN 5 L Creatinine 0.7 Estimated GFR > 60 BUN/Creatinine Ratio 7 Glucose 102 H Calcium 8.1 L Magnesium Ferritin Total Bilirubin 0.50 AST 9 ALT < 5 L Alkaline Phosphatase 42 Total Creatine Kinase Total Protein 6.1 L Albumin 3.2 L Albumin/Globulin Ratio 1.1 TSH Urine Color Straw Urine Turbidity Clear Urine pH 7.0 Ur Specific [place] 1.008 Urine Protein <15 mg/dl Urine Glucose (UA) Neg Urine Ketones Neg Urine Blood Neg Urine Nitrite Neg Urine Bilirubin Neg Urine Urobilinogen < 2.0 Ur Leukocyte Esterase Neg Urine WBC (Auto) < 1.0 Urine RBC (Auto) < 1.0 U Epithel Cells (Auto) 1.0 Urine Mucus Few Urine HCG, Qual Negative Blood Type Antibody Screen Crossmatch 12/17/20 06:35 WBC RBC Hgb Hct MCV MCH MCHC RDW Plt Count Lymph % (Auto) [place] % (Auto) Eos % (Auto) Baso % (Auto) Lymph # (Auto) [place] # (Auto) Eos # (Auto) Baso # (Auto) Seg Neutrophils % Seg Neutrophils # PT INR APTT Sodium Potassium Chloride Carbon Dioxide Anion Gap BUN Creatinine Estimated GFR BUN/Creatinine Ratio Glucose Calcium Magnesium Ferritin 3.4 L Total Bilirubin AST ALT Alkaline Phosphatase Total Creatine Kinase Total Protein Albumin Albumin/Globulin Ratio TSH Urine Color Urine Turbidity Urine pH Ur Specific [place] Urine Protein Urine Glucose (UA) Urine Ketones Urine Blood Urine Nitrite Urine Bilirubin Urine Urobilinogen Ur Leukocyte Esterase Urine WBC (Auto) Urine RBC (Auto) U Epithel Cells (Auto) Urine Mucus Urine HCG, Qual Blood Type Antibody Screen Crossmatch
[2020-12-17] MEDS ORDERED: FLU VACC QUAD 2020-2021 (6 months +)/PF 60 0.5 ML SYRINGE IM ONE (12:00)
[2020-12-17] MEDS ORDERED: SODIUM FERRIC GLUCON/SUCRO 125 MG in SODIUM CHLORIDE 0.9% 100 ML IV ONE (12:30)
--- NOTE | 2020-12-17 12:48 | Progress Note ---
Assessment and Plan Assessment and plan: Acute on chronic anemia -Has iron deficiency anemia -Transfuse 1 unit PRBC -IV iron -Has a history of dysfunctional uterine bleeding. Patient is to follow-up with SPORTS MANAGEMENT INTERN at discharge -Pelvic ultrasound ordered -Hematology oncology accommodations appreciated Thrombocytosis -Due to iron deficiency anemia -Monitor History of chronic nausea/vomiting -Has an appointment with GI as outpatient Syncope due to acute anemia -Witnessed syncopal episode x1 (2/) -Anemia management Autism -Continue risperidone DVT PPX Hold anticoagulation History Interval history: No complaints Hb 6.2. Will get IV iron Hospitalist Physical - Physical exam Narrative exam: VITAL SIGNS: Reviewed. GENERAL: Awake HEAD: No signs of head trauma. EYES: Pupils are equal. Extraocular motions intact. MOUTH: Oropharynx is normal. NECK: No adenopathy, no JVD. CHEST: Chest with diminished breath sounds bilaterally. No wheezes, rales, or rhonchi. CARDIAC: normal S1 and S2, without murmurs, gallops, or rubs. ABDOMEN: Soft, non tender and non distended. No rebound or guarding, and no masses palpated. Bowel Sounds normal. MUSCULOSKELETAL: No edema NEUROLOGIC EXAM: Awake SKIN: No obvious lesions - Constitutional Vitals: Temp Pulse Resp BP Pulse Ox 98.2 F 87 17 140/74 100 12/17/20 11:50 12/17/20 11:51 12/17/20 11:50 12/17/20 11:51 12/17/20 11:51 Results - Labs CBC & Chem 7: 12/17/20 06:35 12/17/20 06:35 Labs: Laboratory Last Values WBC 5.0 K/mm3 (4.5-11.0) 12/17/20 06:35 RBC 2.89 M/mm3 (3.65-5.03) L 12/17/20 06:35 Hgb 6.2 gm/dl (10.1-14.3) L 12/17/20 06:35 Hct 20.3 % (30.3-42.9) L 12/17/20 06:35 MCV 70 fl (79-97) L 12/17/20 06:35 MCH 22 pg (28-32) L 12/17/20 06:35 MCHC 31 % (30-34) 12/17/20 06:35 RDW 22.7 % (13.2-15.2) H 12/17/20 06:35 Plt Count 515 K/mm3 (140-440) H 12/17/20 06:35 Lymph % (Auto) 33.8 % (13.4-35.0) 12/17/20 06:35 [place] % (Auto) 13.6 % (0.0-7.3) H 12/17/20 06:35 Eos % (Auto) 0.7 % (0.0-4.3) 12/17/20 06:35 Baso % (Auto) 1.0 % (0.0-1.8) 12/17/20 06:35 Lymph # (Auto) 1.7 K/mm3 (1.2-5.4) 12/17/20 06:35 [place] # (Auto) 0.7 K/mm3 (0.0-0.8) 12/17/20 06:35 Eos # (Auto) 0.0 K/mm3 (0.0-0.4) 12/17/20 06:35 Baso # (Auto) 0.1 K/mm3 (0.0-0.1) 12/17/20 06:35 Seg Neutrophils % 50.9 % (40.0-70.0) 12/17/20 06:35 Seg Neutrophils # 2.6 K/mm3 (1.8-7.7) 12/17/20 06:35 PT 12.3 Sec. (12.2-14.9) 12/16/20 19:48 INR 0.92 (0.87-1.13) 12/16/20 19:48 APTT 30.2 Sec. (24.2-36.6) 12/16/20 19:48 Sodium 138 mmol/L (137-145) 12/17/20 06:35 Potassium 3.7 mmol/L (3.6-5.0) 12/17/20 06:35 Chloride 105.7 mmol/L (98-107) 12/17/20 06:35 Carbon Dioxide 27 mmol/L (22-30) 12/17/20 06:35 Anion Gap 9 mmol/L 12/17/20 06:35 BUN 5 mg/dL (7-17) L 12/17/20 06:35 Creatinine 0.7 mg/dL (0.6-1.2) 12/17/20 06:35 Estimated GFR > 60 ml/min 12/17/20 06:35 BUN/Creatinine Ratio 7 % 12/17/20 06:35 Glucose 102 mg/dL (65-100) H 12/17/20 06:35 Calcium 8.1 mg/dL (8.4-10.2) L 12/17/20 06:35 Magnesium 2.00 mg/dL (1.7-2.3) 12/16/20 20:12 Ferritin 3.4 ng/mL (10.0-200.0) L 12/17/20 06:35 Total Bilirubin 0.50 mg/dL (0.1-1.2) 12/17/20 06:35 AST 9 units/L (5-40) 12/17/20 06:35 ALT < 5 units/L (7-56) L 12/17/20 06:35 Alkaline Phosphatase 42 units/L (35-129) 12/17/20 06:35 Total Creatine Kinase 75 units/L (30-135) 12/16/20 20:12 Total Protein 6.1 g/dL (6.3-8.2) L 12/17/20 06:35 Albumin 3.2 g/dL (3.9-5) L 12/17/20 06:35 Albumin/Globulin Ratio 1.1 % 12/17/20 06:35 TSH 1.960 mlU/mL (0.270-4.200) 12/16/20 20:12 Urine Color Straw (Yellow) 12/16/20 21:27 Urine Turbidity Clear (Clear) 12/16/20 21:27 Urine pH 7.0 (5.0-7.0) 12/16/20 21:27 Ur Specific [place] 1.008 (1.003-1.030) 12/16/20 21:27 Urine Protein <15 mg/dl mg/dL (Negative) 12/16/20 21: Urine Glucose (UA) Neg mg/dL (Negative) 12/16/20 21: Urine Ketones Neg mg/dL (Negative) 12/16/20 21:27 Urine Blood Neg (Negative) 12/16/20 21: Urine Nitrite Neg (Negative) 12/16/20 21: Urine Bilirubin Neg (Negative) 12/16/20 21:27 Urine Urobilinogen < 2.0 mg/dL (<2.0) 12/16/20 21:27 Ur Leukocyte Esterase Neg (Negative) 12/16/20 21: Urine WBC (Auto) < 1.0 /HPF (0.0-6.0) 12/16/20 21: Urine RBC (Auto) < 1.0 /HPF (0.0-6.0) 12/16/20 21: U Epithel Cells (Auto) 1.0 /HPF (0-13.0) 12/16/20 21: Urine Mucus Few /HPF 12/16/20 21:27 Urine HCG, Qual Negative (Negative) 12/16/20 21: Blood Type O POSITIVE 12/16/20 20:12 Antibody Screen Negative 12/16/20 20:12 Crossmatch See Detail 12/16/20 20:12 - Diagnostic Impressions Diagnostic Impressions: Echocardiogram 12/16/20 21:43 Transthoracic Echocardiogram Indication: Syncope BP: 126/62 HR: 82 Conclusions *The left ventricular chamber size is normal. *There is no left ventricular hypertrophy. *Global left ventricular systolic function is normal. *Normal left ventricular diastolic filling is observed. *The left atrial chamber size is normal. *The right ventricular global systolic function is normal. *The right ventricular systolic pressure is calculated at 45 mmHg. *There is a greater than 50% respiratory change in the inferior vena cava dimension. Findings Left Ventricle: The left ventricular chamber size is normal. There is no left ventricular hypertrophy. Global left ventricular wall motion and contractility are within normal limits. Global left ventricular systolic function is normal. The estimated ejection fraction is 50-55%. Normal left ventricular diastolic filling is observed. Left Atrium: The left atrial chamber size is normal. Right Ventricle: The right ventricular cavity size is normal. The right ventricular global systolic function is normal. Right Atrium: The right atrial cavity size is normal. Aortic Valve: The aortic valve is trileaflet. There is no evidence of aortic valve thickening. There is no evidence of aortic regurgitation. Mitral Valve: The mitral valve leaflets do not appear thickened. There is trace of mitral regurgitation. Tricuspid Valve: The tricuspid valve leaflets are normal. There is mild tricuspid regurgitation. The right ventricular systolic pressure is calculated at 45 mmHg. Pulmonic Valve: There is no evidence of pulmonic valve thickening. There is no evidence of pulmonic regurgitation. Pericardium: There is no pericardial effusion. Aorta: The aorta appears normal. Venous: The inferior vena cava appears normal in size. There is a greater than 50% respiratory change in the inferior vena cava dimension. Measurements Chambers 2D Name Value Normal Range IVSd (2D) 0.57 cm (0.6 - 1.1) LVPWd (2D) 0.71 cm (0.6 - 1.1) LVIDd (2D) 5.28 cm (3.7 - 5.6) LVIDs (2D) 3.75 cm (2 - 3.8) LV FS (2D) 29.01 % - EF Teichholz (2D) 55.3 % - Ao root diameter (2D) 2.33 cm (2 - 3.7) Volumes/Mass Name Value Normal Range LA ESV SP 4CH (A/L) 50.86 ml - LA ESV SP 2CH (A/L) 59.46 ml - LA ESV BP (A/L) 57.43 ml - LA ESV BP (A/L) index 26.34 ml/m2 - LA ESV SP 4CH (MOD) 46.18 ml - LA ESV SP 2CH (MOD) 56.25 ml - LA ESV BP (MOD) 52.98 ml - LA ESV BP (MOD) index 24.3 ml/m2 - Diastolic/Systolic Function Name Value Normal Range MV E-wave Vmax 1.38 m/sec - MV deceleration time 205.11 msec - MV A-wave Vmax 0.94 m/sec - MV E:A ratio 1.46 ratio - Aortic Valve Name Value Normal Range AV Vmax 2.06 m/sec - AV VTI 44.52 cm - AV peak gradient 16.96 mmHg - AV mean gradient 8.57 mmHg - LVOT diameter 1.65 cm - LVOT Vmax 1.82 m/sec - LVOT VTI 39.7 cm - LVOT peak gradient 13.19 mmHg - LVOT mean gradient 6.63 mmHg - SV LVOT 85.33 ml - ERI (continuity Vmax) 1.9 cm2 - ERI (continuity VTI) 1.92 cm2 - Tricuspid Valve Name Value Normal Range TR Vmax 3.24 m/sec - TR peak gradient 42 mmHg - RAP 3 mmHg - RVSP 45 mmHg - IVC diameter 2.24 cm (1.2 - 2.3) Pulmonic Valve/Qp:Qs Name Value Normal Range PV Vmax 1.65 m/sec - PV peak gradient 10.92 mmHg - PV acceleration time 175.07 msec - Pond/IV: Voiding Method Toilet Active Medications - Current Medications Current Medications: Generic Name Dose Route Start Last Admin Trade Name Freq PRN Reason Stop Dose Admin Acetaminophen 650 mg 12/16/20 21:39 12/17/20 01:25 Acetaminophen 325 Mg Tab PO 650 mg Q4H PRN Administration Pain MILD(1-3)/Fever >100.5/JOHNSON Ferrous Sulfate 325 mg 12/17/20 10:00 12/17/20 09:58 Ferrous Sulfate 325 Mg Tab PO 325 mg QDAY CARMEN Administration Ferric Sodium Gluconate 110 mls @ 100 mls/hr 12/17/20 12:30 12/17/20 12:41 Complex 125 mg/ Sodium IV 12/17/20 13:35 100 mls/hr Chloride ONCE ONE Administration Sodium Chloride 500 mls @ 0 mls/hr 12/17/20 12:41 Nacl 0.9% 500 Ml IV 12/17/20 12:42 ONCE ONE As Directed Ondansetron HCl 4 mg 12/16/20 20:20 Ondansetron 4 Mg Odt Tab PO Q6HR PRN Nausea Ondansetron HCl 4 mg 12/16/20 21:39 Ondansetron 4 Mg/2 Ml Inj IV Q6H PRN Nausea And Vomiting Pantoprazole Sodium 40 mg 12/17/20 10:00 12/17/20 09:58 Pantoprazole 40 Mg Tab PO 40 mg DAILY CARMEN Administration Risperidone 1 mg 12/16/20 22:00 12/16/20 23:02 Risperidone 1 Mg Tab PO 1 mg QHS CARMEN Administration Sodium Chloride 10 ml 12/16/20 22:00 12/17/20 09:58 Sodium Chloride 0.9% 10 Ml Flush Syringe IV 10 ml BID CARMEN Administration Sodium Chloride 10 ml 12/16/20 21:39 Sodium Chloride 0.9% 10 Ml Flush Syringe IV PRN PRN LINE FLUSH
[2020-12-17] MEDS ORDERED: SODIUM CHLORIDE 0.9% 500 ML 500 ML IV SCH (13:00)
[2020-12-17 15:38] LABS: Hematocrit 21.6 % (30.3-42.9); Hemoglobin 6.6 gm/dl (10.1-14.3)
--- NOTE | 2020-12-17 16:17 | Ultrasound Report ---
ULTRASOUND PELVIS COMPLETE INDICATION / CLINICAL INFORMATION: menorrhagia. TECHNIQUE: Transabdominal. Duplex Color Doppler used: Yes. COMPARISON: None available FINDINGS: UTERUS: Present. - Appearance (if present): Unremarkable - Size in cm (if present): 8.4 x 4.4 x 6.1. - Endometrial Complex (if present): No significant abnormality.. Thickness in cm (if measured) = 1.4 - Mass lesions: 2 intramural fibroids are identified measuring 2 cm in the right lateral wall and 1.2 cm in the anterior wall. - Additional findings: None. RIGHT ADNEXA: 3.0 x 3.3 cm right ovarian cyst. Normal color Doppler blood flow. LEFT ADNEXA: No significant ovarian cyst or mass. Normal color Doppler blood flow. URINARY BLADDER: No significant abnormality. FREE FLUID: None. ADDITIONAL FINDINGS: None. IMPRESSION: Mild uterine fibroid disease as described. 3.3 cm right ovarian cyst. Signer Name: Valentino Calhoun Jr, MD Signed: 12/17/2020 4:12 PM Workstation Name: [id number]
[2020-12-17] MEDS: risperiDONE 1 MG TAB PO SCH (21:43)
[2020-12-18 04:06] VITALS: BP 144/85
[2020-12-18 06:34] LABS: Hematocrit 25.2 % (30.3-42.9); Hemoglobin 8.1 gm/dl (10.1-14.3)
[2020-12-18] MEDS: FERROUS SULFATE 325 MG TAB PO SCH (09:57)
[2020-12-18] MEDS: PANTOPRAZOLE 40 MG TAB PO SCH (09:57)
--- NOTE | 2020-12-18 10:47 | Discharge Summary ---
Providers - Providers Date of Admission: 12/18/20 09:05 Date of discharge: 12/18/20 Attending physician: SUDARSHAN ROACH 12/16/20 21:39 Consult to Physician [CONS] Routine Comment: Consulting Provider: ITZEL CHERRY Physician Instructions: Reason For Exam: Microcytic anemia, thrombocytosis, syncope Hospitalization Condition: Good Hospital course: HPI 40-year-old autistic female with history of chronic nausea/vomiting when eating, menorrhagia, and iron deficiency anemia who presents to [facility] ED with complaints of anemia. Of note patient sister, who is also her primary fish flipper is present and has assisted with providing history. Patient sister reports they were out grocery shopping on Tuesday (12/12) and patient had a syncopal episode. Patient was evaluated by emergency medical services (who were on scene), with no acute findings. On Tuesday patient went to her PCP for follow-up, and routine labs were drawn which showed hemoglobin of 4.1. Patient was referred to report to ED for further evaluation and treatment. At the time of my examination patient is sitting up in stretcher, alert and oriented x2-3, and has no complaints at this time. Denies headache, dizziness, alterations in vision, alterations in gait, abdominal pain, fever, hematuria, melena, hematemesis, hemoptysis, change in medication, Hospital course Patient was transfused with 1 unit packed red blood cells and hematology oncology was consulted. Iron studies done showed patient had iron deficiency anemia was started on intravenous iron. Patient has a history of dysfunctional uterine bleeding, replacement therapy in the past. Pelvic ultrasound performed showed normal endometrium. Patient will need to follow-up with [facility] for further evaluation. This a.m., her hemoglobin is more than 8. She is hemodynamically stable. Patient will be discharged today to follow-up with [facility]. Discussed with patient's sister. She will continue iron tablets at discharge Time spent for discharge: 35 mins - Discharge Diagnoses (1) Iron deficiency anemia due to chronic blood loss Status: Acute (2) Autism Status: Acute (3) Syncope Status: Acute Core Measure Documentation - Palliative Care Palliative Care/ Comfort Measures: Not Applicable - Core Measures Any of the following diagnoses?: none Exam - Physical Exam Narrative exam: VITAL SIGNS: Reviewed. GENERAL: Awake HEAD: No signs of head trauma. EYES: Pupils are equal. Extraocular motions intact. MOUTH: Oropharynx is normal. NECK: No adenopathy, no JVD. CHEST: Chest with diminished breath sounds bilaterally. No wheezes, rales, or rhonchi. CARDIAC: normal S1 and S2, without murmurs, gallops, or rubs. ABDOMEN: Soft, non tender and non distended. No rebound or guarding, and no masses palpated. Bowel Sounds normal. MUSCULOSKELETAL: No edema NEUROLOGIC EXAM: Awake SKIN: No obvious lesions - Constitutional Vitals: Temp Pulse Resp BP Pulse Ox 97.8 F 69 16 144/85 99 12/18/20 04:06 12/18/20 08:39 12/18/20 08:39 12/18/20 04:06 12/18/20 08:39 Plan Activity: no restrictions Additional Instructions: Continue iron tablets. Follow-up with [facility] for complete evaluation of dysfunctional uterine bleeding. Follow-up with GI as already scheduled. Follow-up with PCP in 1 to 2 weeks. Follow up with: [facility] [Other] - 3-5 Days SAFIA LONDON MD [Staff Physician] - 7 Days Prescriptions: Ferrous Sulfate [Feosol 325 MG tab] 325 mg PO BID #60 tablet
== END 2020-12-18 13:10 | disposition home or self-care (01) | DRG 812 ==
LOC: ED 18:58 → 4A 21:26 → OBSVTOIN 12-18 09:05
PROVIDERS: ADMIT Internal Medicine; ATTEND Internal Medicine
PROC: 30233N1 Transfusion of Nonautologous Red Blood Cells into Peripheral Vein, Percutaneous Approach (ICD-10-PCS; principal; 2020-12-17)
DX: D50.0 Iron deficiency anemia secondary to blood loss (chronic) (principal); F84.0 Autistic disorder; J45.909 Unspecified asthma, uncomplicated; D47.3 Essential (hemorrhagic) thrombocythemia; Z87.898 Personal history of other specified conditions
CPT/HCPCS: 36415; 71045; 76856; 80053; 81001; 81025; 82550; 82728; 83735; 84443; 85014; 85018; 85025; 85610; 85730; 86850; 86900; 86901; 86920; 93005; 93306; 96365; 96375; 96376; G0378; J2916; J7040; J7120; P9016